=== PATIENT | female | born 1965 | race Caucasian/White ===

== ENCOUNTER → 2021-03-05 | Outpatient (CLI) | payer OTHER | LOC: HEART 5 12:01 | DX: J44.9 Chronic obstructive pulmonary disease, unspecified (principal) | CPT/HCPCS: 94060; 94729 ==

== ENCOUNTER → 2021-03-12 | Outpatient (CLI) | payer OTHER | LOC: RT 14:48 | DX: J96.92 Respiratory failure, unspecified with hypercapnia (principal); J43.9 Emphysema, unspecified | CPT/HCPCS: 36600; 71046; 82803 ==